=== PATIENT | female | born 1955 | race Caucasian/White ===

== ENCOUNTER → 2020-10-16 | Outpatient (CLI) | payer OTHER | LOC: CT 07:47 | DX: K76.0 Fatty (change of) liver, not elsewhere classified (principal); R10.31 Right lower quadrant pain; R16.1 Splenomegaly, not elsewhere classified | CPT/HCPCS: Q9967 ==

== ENCOUNTER → 2021-04-24 | Outpatient (CLI) | payer OTHER | LOC: MAMO 04-10 09:00 | DX: Z12.31 Encounter for screening mammogram for malignant neoplasm of breast (principal) | CPT/HCPCS: 77063; 77067 ==

== ENCOUNTER 2021-05-16 15:41 | Emergency (ER) | payer OTHER ==
[2021-05-16] MEDS ORDERED: DELSYM30 MG/5 ML PO (17:41)
== END 2021-05-16 19:20 | disposition home or self-care (01) ==
LOC: ER1 15:41
DX: U07.1 COVID-19 (principal)
CPT/HCPCS: 99283; M0243

== ENCOUNTER → 2022-03-27 | Outpatient (CLI) | payer OTHER ==
[~2022-03-27] MED LIST: DELSYM30 MG/5 ML PO
== END ==
LOC: CT 08:00
DX: R10.31 Right lower quadrant pain (principal); R50.9 Fever, unspecified; Z79.899 Other long term (current) drug therapy; K74.60 Unspecified cirrhosis of liver; K76.6 Portal hypertension; R18.8 Other ascites
CPT/HCPCS: Q9967

== ENCOUNTER → 2022-04-25 | Outpatient (CLI) | payer OTHER | LOC: MAMO 15:28 | DX: Z12.31 Encounter for screening mammogram for malignant neoplasm of breast (principal) | CPT/HCPCS: 77063; 77067 ==